=== PATIENT | male | born 1985 | race Hispanic/Latino ===

== ENCOUNTER 2017-07-03 14:36 | Emergency (ER) | payer OTHER ==
[~2017-07-03] VITALS: Ht 160 cm; Wt 64.0 kg
[2017-07-03] MEDS ORDERED: MOTRIN400 MG PO (16:22)
[2017-07-03 16:29] VITALS: BP 117/73
== END 2017-07-03 16:30 | disposition home or self-care (01) | DRG 605 ==
LOC: ED 14:36
DX: S20.229A Contusion of unspecified back wall of thorax, initial encounter (principal); M54.6 Pain in thoracic spine; S20.212A Contusion of left front wall of thorax, initial encounter; S20.211A Contusion of right front wall of thorax, initial encounter; W17.89XA Other fall from one level to another, initial encounter; Y93.H3 Activity, building and construction; Y92.89 Other specified places as the place of occurrence of the external cause; R07.89 Other chest pain